=== PATIENT | female | born 1985 | race Caucasian/White ===

== ENCOUNTER 2017-08-17 01:56 | Emergency (ER) | payer OTHER ==
[~2017-08-17] VITALS: Ht 170.2 cm; Wt 49.9 kg
[2017-08-17] MEDS ORDERED: HYDROMORPHONE 1 MG/1 ML DISP.SYRIN IM ONE (02:30)
[2017-08-17] MEDS ORDERED: ONDANSETRON ODT 4 MG TAB.RAPDIS SL ONE (02:30)
[2017-08-17] MEDS ORDERED: MISCELLANEOUS MED XX ONE (02:30)
[2017-08-17] MEDS ORDERED: HYDROMORPHONE 2 MG/1 ML DISP.SYRIN ONE (02:44)
[2017-08-17] MEDS ORDERED: PENICILLIN G BENZATHINE 2.4 MMU/4 ML DISP.SYRIN IM ONE (02:45)
[2017-08-17] MEDS ORDERED: ONDANSETRON ODT 4 MG TAB.RAPDIS ONE (02:45)
--- NOTE | 2017-08-17 02:47 | NUR ---
Pt ambulated to room with steady gait. Pt c/o tooth pain from chipped tooth as well as sore throat. Pt seen by Dr. Coello. Pt medicated for pain, will monitor for effects of medication. Pt medicated with Bicillin 2.4 IM in the left dorsal glute ( ordered under misc. per Dr. Coello), will monitor for any adverse reactions. Pt resting in position of comfort for self.
--- NOTE | 2017-08-17 03:10 | NUR ---
No adverse reaction noted from ABT injection. Pt sts pain improved with medication. Pt stable for discharge per Dr. Coello. Pt given ACI. Pt verbalized understanding of dc instructions. Pt ambulated out of er with steady gait to wait for ride in [place]
[2017-08-17 04:14] VITALS: BP 115/85
== END 2017-08-17 03:10 | disposition home or self-care (01) ==
LOC: ER 02:11
DX: S09.93XA Unspecified injury of face, initial encounter (principal); K02.9 Dental caries, unspecified; J02.9 Acute pharyngitis, unspecified; F17.200 Nicotine dependence, unspecified, uncomplicated; X58.XXXA Exposure to other specified factors, initial encounter; Y93.89 Activity, other specified; Y92.9 Unspecified place or not applicable; Y99.9 Unspecified external cause status
CPT/HCPCS: A4663; J1170; Q0162

== ENCOUNTER 2018-03-29 03:36 | Emergency (ER) | payer SELFPAY ==
[~2018-03-29] VITALS: Ht 170.2 cm; Wt 54.4 kg
--- NOTE | 2018-03-29 04:00 | NUR ---
DR. ZUÑIGA AT BEDSIDE FOR MSE.
[2018-03-29] MEDS: HYDROCODONE/APAP 10-325 MG TABLET PO ONE (04:12)
[2018-03-29] MEDS ORDERED: CEPHALEXIN MONOHYDRATE 500 MG CAPSULE ONE (04:12)
[2018-03-29] MEDS ORDERED: HYDROCODONE/APAP 10-325 MG TABLET ONE (04:12)
[2018-03-29] MEDS: CEPHALEXIN MONOHYDRATE 500 MG CAPSULE PO ONE (04:12)
--- NOTE | 2018-03-29 04:15 | NUR ---
Patient discharged to home in stable conditon. Written and verbal after care instructions given. Patient verbalizes understanding of instructions. Pt left ER and walks in steady gait. Pt given prescription medication and understands not to drive home when on [place]. Pt states she has a ride outside to take her home. No distress noted.
[2018-03-29 04:19] VITALS: BP 131/92
== END 2018-03-29 04:21 | disposition home or self-care (01) ==
LOC: ER 03:38
DX: S02.5XXA Fracture of tooth (traumatic), initial encounter for closed fracture (principal); F17.210 Nicotine dependence, cigarettes, uncomplicated; X58.XXXA Exposure to other specified factors, initial encounter; Y93.89 Activity, other specified; Y92.89 Other specified places as the place of occurrence of the external cause; Y99.8 Other external cause status
CPT/HCPCS: A4663

== ENCOUNTER 2018-04-16 22:20 | Emergency (ER) | payer OTHER ==
[~2018-04-16] VITALS: Ht 170.2 cm; Wt 54.4 kg
--- NOTE | 2018-04-16 22:35 | NUR ---
DR FREDIS GALLO MD AT BEDSIDE FOR MSE.
--- NOTE | 2018-04-16 22:39 | NUR ---
PT C/O RT LOWER TOOTH PAIN FOR A FEW WEEKS. DENIES TRAUMA. NO ACTIVE BLEEDING NOTED AT SITE OR OBVIOUS DEFORMITY. PT REQUESTS SOMETHING FOR PAIN, BUT STATES SHE IS DRIVING SO DOES NOT WANT NARCOTICS. PT A&OX4
[2018-04-16] MEDS ORDERED: KETOROLAC TROMETHAMINE 30 MG INJ IM ONE (22:45)
[2018-04-16] MEDS ORDERED: HYDROCODONE/APAP 10-325 MG TABLET PO ONE (22:45)
[2018-04-16] MEDS ORDERED: PENICILLIN V POTASSIUM 500 MG TABLET PO ONE (22:45)
[2018-04-16] MEDS ORDERED: PENICILLIN V POTASSIUM 500 MG TABLET ONE (22:47)
[2018-04-16] MEDS ORDERED: KETOROLAC TROMETHAMINE 30 MG INJ ONE (22:47)
--- NOTE | 2018-04-16 22:55 | NUR ---
Patient discharged to home in stable conditon. Written and verbal after care instructions given. Patient verbalizes understanding of instructions. Pt accompanied by friend. Pt took all personal belongings. No distress noted.
[2018-04-16 23:00] VITALS: BP 122/84
== END 2018-04-16 23:28 | disposition home or self-care (01) ==
LOC: ER 22:21
DX: K02.9 Dental caries, unspecified (principal); F17.200 Nicotine dependence, unspecified, uncomplicated
CPT/HCPCS: 96372; 99283; A4663; J1885

== ENCOUNTER 2019-08-22 03:42 | Emergency (ER) | payer SELFPAY ==
[~2019-08-22] VITALS: Ht 170.2 cm; Wt 54.4 kg
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
--- NOTE | 2019-08-22 04:21 | NUR ---
ERMD at bedside for MSE
[2019-08-22] MEDS ORDERED: TDAP DIPH,PERTUSS,TET VAC/PF 0.5 ML DISP.SYRIN IM ONE ×2 (04:30→04:36)
[2019-08-22] MEDS ORDERED: HYDROCODONE/APAP 5-325MG TABLET PO ONE (04:30)
[2019-08-22] MEDS ORDERED: HYDROCODONE/APAP 5-325MG TABLET ONE (04:36)
[2019-08-22 05:13] LABS: *URINE HCG, QUAL NEGATIVE (NEGATIVE)
--- NOTE | 2019-08-22 05:13 | NUR ---
Patient discharged to home in stable conditon. Written and verbal after care instructions given. Patient verbalizes understanding of instructions. Patient ambulated with stable gait.
[2019-08-22 05:22] VITALS: BP 132/88
== END 2019-08-22 05:13 | disposition home or self-care (01) ==
LOC: ER 03:45
DX: T25.222A Burn of second degree of left foot, initial encounter (principal); L03.116 Cellulitis of left lower limb; F17.200 Nicotine dependence, unspecified, uncomplicated; X10.2XXA Contact with fats and cooking oils, initial encounter; Y93.89 Activity, other specified; Y92.89 Other specified places as the place of occurrence of the external cause; Y99.8 Other external cause status
CPT/HCPCS: 84703; 90715; A4663

== ENCOUNTER 2019-11-18 18:59 | Emergency (ER) | payer MEDICAID ==
[~2019-11-18] VITALS: Ht 167.6 cm; Wt 49.9 kg
--- NOTE | 2019-11-18 19:16 | NUR ---
PT AMBULATORY FR HOME C/O CHANGE IN URINE ODOR AND OCCASSIONAL DYSURIA FOR 2WKS AOX4, PT ABLE TO SPEAK CLEAR AND COMPLETE SENTENCES ABLE TO COMPLY WITH COMMANDS DENIES VAGINAL BLEEDING, DENIES FEVERS/CHILLS/NVD/JOINT PAIN DENIES RECENT TRAVELS DENIES POLYURIA MONITORED ACCORDINGLY
[2019-11-18 19:51] LABS: *BILIRUBIN,URIN NEGATIVE (NEGATIVE); *BLOOD, URINE NEGATIVE (NEGATIVE); *CLARITY,URINE SLIGHTLY CLOUDY (CLEAR); *COLOR,URINE YELLOW (YELLOW); *KETONES,URINE NEGATIVE (NEGATIVE); *UROBILINOGEN,URINE 0.2 E.U./dl (NORMAL); LEUKOCYTE ESTERASE ,URINE NEGATIVE (NEGATIVE); NITRITE, URINE POSITIVE (NEGATIVE); UGLUCOSE NEGATIVE (NEGATIVE)
[2019-11-18 19:54] LABS: *URINE HCG, QUAL NEGATIVE (NEGATIVE)
[2019-11-18 19:58] LABS: BACTERIA,URINE MANY /HPF (NONE SEEN); RBC,URINE 0-3 /HPF (0-3); SQUAMOUS EPITHELIAL CELL,UR FEW /HPF (NONE SEEN)
--- NOTE | 2019-11-18 20:06 | NUR ---
Patient discharged to home in stable conditon. Written and verbal after care instructions given. Patient verbalizes understanding of instructions. AMBULATORY W/ STABLE ALL BELONGINGS W/ PT
[2019-11-18 20:12] VITALS: BP 137/91
== END 2019-11-18 20:13 | disposition home or self-care (01) ==
LOC: ER 19:04
DX: N39.0 Urinary tract infection, site not specified (principal); F17.200 Nicotine dependence, unspecified, uncomplicated
CPT/HCPCS: 84703; 87077; 87086; A4663

== ENCOUNTER 2020-06-30 18:14 | Emergency (ER) | payer MEDICAID, OTHER ==
[~2020-06-30] VITALS: Ht 167.6 cm; Wt 49.9 kg
--- NOTE | 2020-06-30 18:30 | NUR ---
Dr Hugo at the bedside for MSE.
[2020-06-30 18:43] LABS: *BILIRUBIN,URIN NEGATIVE (NEGATIVE); *BLOOD, URINE 2+ (NEGATIVE); *CLARITY,URINE CLOUDY (CLEAR); *COLOR,URINE YELLOW (YELLOW); *KETONES,URINE TRACE (NEGATIVE); LEUKOCYTE ESTERASE ,URINE TRACE (NEGATIVE); NITRITE, URINE POSITIVE (NEGATIVE); UGLUCOSE NEGATIVE (NEGATIVE)
[2020-06-30] MEDS ORDERED: KETOROLAC TROMETHAMINE 15 MG INJ ONE (18:43)
[2020-06-30] MEDS ORDERED: ACETAMINOPHEN ES 500 MG TABLET ONE (18:43)
[2020-06-30] MEDS ORDERED: KETOROLAC TROMETHAMINE 15 MG INJ IVP ONE (18:45)
[2020-06-30] MEDS ORDERED: IV NORMAL SALINE 1000 ML BAG IV ONE ×2 (18:45→19:15)
[2020-06-30] MEDS ORDERED: ACETAMINOPHEN ES 500 MG TABLET PO ONE (18:45)
[2020-06-30 18:48] LABS: *URINE HCG, QUAL NEGATIVE (NEGATIVE)
[2020-06-30 18:55] LABS: BASOPHILS % (AUTO) 0.1 % (0.0-2.0); HEMATOCRIT 37.5 % (31.2-41.9); HEMOGLOBIN 12.4 g/dL (10.9-14.3); LYMPHOCYTES # (AUTO) 0.8 K/uL (20.0-40.0); LYMPHOCYTES % (AUTO) 4.1 % (20.5-51.5); MEAN CORPUSCULAR HGB CONC 33 g/dL (32.3-35.6); MEAN CORPUSCULAR VOLUME 91.1 fL (75.5-95.3); MONOCYTES # (AUTO) 2.4 K/uL (2.0-10.0); MONOCYTES % (AUTO) 12.7 % (0.0-11.0); NEUTROPHILS # (AUTO) 15.6 K/uL (1.8-8.9); NEUTROPHILS % (AUTO) 83.1 % (38.5-71.5); PLATELET COUNT (AUTO) 188 K/uL (179-408); RED BLOOD CELL COUNT(AUTO) 4.12 MIL/uL (3.63-4.92); WHITE BLOOD COUNT (AUTO) 18.7 K/uL (3.8-11.8)
[2020-06-30 18:58] LABS: POTASSIUM 3.4 mmol/L (3.5-5.1)
[2020-06-30 19:04] LABS: BACTERIA,URINE MANY /HPF (NONE SEEN); SQUAMOUS EPITHELIAL CELL,UR MANY /HPF (NONE SEEN)
[2020-06-30] MEDS ORDERED: CEFTRIAXONE 1 G in IV DEXTROSE 5% 50 ML IV ONE (19:15)
[2020-06-30] MEDS ORDERED: CEFTRIAXONE /D5W 50ML IVPB **ER PYXIS IV ONE (19:20)
--- NOTE | 2020-06-30 20:12 | NUR ---
IV removed. Catheter intact and site benign. Pressure and 4x4 gauze applied to site. No bleeding noted.
[2020-06-30 20:19] VITALS: BP 116/66
--- NOTE | 2020-06-30 20:19 | NUR ---
Patient discharged to home in stable condition. Written and verbal after care instructions given. Patient verbalizes understanding of instructions. Stressed follow up or return to ER for worsening s/s.
== END 2020-06-30 20:20 | disposition home or self-care (01) ==
LOC: ER 18:14
DX: N10 Acute pyelonephritis (principal); E87.1 Hypo-osmolality and hyponatremia; E87.6 Hypokalemia; Z87.440 Personal history of urinary (tract) infections
CPT/HCPCS: 36415; 80048; 81001; 84703; 85025; 87077; 87086; 87186; 96361; 96365; 96375; 99284; J0696; J1885; A4663; A9150; J7030

== ENCOUNTER 2022-12-03 18:26 | Emergency (ER) | payer OTHER | END 2022-12-03 20:46 | disposition left against medical advice (07) | LOC: ER 18:30 | DX: Z53.21 Procedure and treatment not carried out due to patient leaving prior to being seen by health care provider (principal) ==

== ENCOUNTER 2024-05-21 04:36 | Emergency (ER) | payer OTHER ==
[~2024-05-21] VITALS: Ht 167.6 cm; Wt 52.2 kg
[2024-05-21] MEDS ORDERED: ONDANSETRON HCL 4 MG TABLET ONE (05:15)
[2024-05-21] MEDS ORDERED: ACETAMINOPHEN 325 MG TABLET ONE (05:15)
[2024-05-21] MEDS: ACETAMINOPHEN 325 MG TABLET PO ONE (05:19)
[2024-05-21] MEDS: ONDANSETRON HCL 4 MG TABLET PO ONE (05:19)
[2024-05-21 05:22] LABS: BASOPHILS % (AUTO) 0.9 % (0.0-2.0); EOSINOPHILS # (AUTO) 0.2 K/uL (0.0-0.7); EOSINOPHILS % (AUTO) 3.1 % (0.0-7.0); HEMATOCRIT 36.7 % (31.2-41.9); HEMOGLOBIN 12.3 g/dL (10.9-14.3); LYMPHOCYTES # (AUTO) 1.8 K/uL (0.8-4.8); LYMPHOCYTES % (AUTO) 35.1 % (20.5-51.5); MEAN CORPUSCULAR HEMOGLOBIN 30.3 uug (24.7-32.8); MEAN CORPUSCULAR HGB CONC 34 g/dL (32.3-35.6); MONOCYTES # (AUTO) 0.7 K/uL (0.1-1.30); MONOCYTES % (AUTO) 12.9 % (0.0-11.0); NEUTROPHILS # (AUTO) 2.4 K/uL (1.8-8.9); PLATELET COUNT (AUTO) 237 K/uL (179-408); RED BLOOD CELL COUNT(AUTO) 4.08 MIL/uL (3.63-4.92); WHITE BLOOD COUNT (AUTO) 5.1 K/uL (3.8-11.8)
[2024-05-21 05:26] LABS: DIFFERENTIAL COMMENT 1
[2024-05-21 05:32] LABS: CALCIUM 8.6 mg/dL (8.5-10.1); CREATININE 0.8 mg/dL (0.6-1.3); POTASSIUM 3.4 mmol/L (3.5-5.1)
[2024-05-21 05:38] LABS: ALBUMIN 3.3 g/dL (3.4-5.0); BILIRUBIN,TOTAL 0.4 mg/dL (0.2-1.0); TOTAL PROTEIN, SERUM 6.8 g/dL (6.4-8.2)
[2024-05-21] MEDS ORDERED: ONDA4TAB5 PO (05:48)
[2024-05-21 06:15] LABS: *BILIRUBIN,URIN NEGATIVE (NEGATIVE); *BLOOD, URINE 3+ (NEGATIVE); *COLOR,URINE YELLOW (YELLOW); *KETONES,URINE NEGATIVE (NEGATIVE); *PROTEIN,URINE TRACE (NEGATIVE); *UROBILINOGEN,URINE 0.2 E.U./dl (NORMAL); LEUKOCYTE ESTERASE ,URINE NEGATIVE (NEGATIVE); NITRITE, URINE NEGATIVE (NEGATIVE); UGLUCOSE NEGATIVE (NEGATIVE)
[2024-05-21 06:19] VITALS: BP 130/83; TEMP 98.6; O2SAT 99
[2024-05-21 06:20] LABS: *CLARITY,URINE SLIGHTLY CLOUDY (CLEAR); *URINE HCG, QUAL NEGATIVE (NEGATIVE)
[2024-05-21 06:21] LABS: BACTERIA,URINE FEW /HPF (NONE SEEN); RBC,URINE TNTC /HPF (0-3); SQUAMOUS EPITHELIAL CELL,UR FEW /HPF (NONE SEEN); WBC,URINE 0-3 /HPF (0-3)
== END 2024-05-21 06:19 | disposition home or self-care (01) ==
LOC: ER 04:42
DX: K62.5 Hemorrhage of anus and rectum (principal); R10.2 Pelvic and perineal pain; Z98.890 Other specified postprocedural states
CPT/HCPCS: 36415; 83735; 84703; 85025; A4606; A4663; Q0162

== ENCOUNTER 2024-10-19 06:24 | Emergency (ER) | payer BC, OTHER ==
[~2024-10-19] VITALS: Ht 167.6 cm; Wt 54.4 kg
[~2024-10-19 06:24] MED LIST: ONDA4TAB5 PO
[2024-10-19] MEDS ORDERED: ACET-2605 PO (07:30)
[2024-10-19] MEDS ORDERED: SULFAMETH/TRIMETH 800/160 MG TABLET PO ONE (07:30)
[2024-10-19] MEDS ORDERED: SULF1TAB48 PO (07:30)
[2024-10-19] MEDS ORDERED: ACETAMINOPHEN 500 MG TABLET ONE (07:32)
[2024-10-19] MEDS ORDERED: SULFAMETH/TRIMETH 800/160 MG TABLET ONE (07:32)
[2024-10-19] MEDS ORDERED: CEFTRIAXONE 1 G VIAL ONE (07:35)
[2024-10-19] MEDS: ACETAMINOPHEN 500 MG TABLET PO ONE (07:36)
[2024-10-19] MEDS ORDERED: LIDOCAINE HCL 1% 20 ML VIAL ONE (07:38)
[2024-10-19] MEDS: CEFTRIAXONE 1 G VIAL IM ONE (07:48)
[2024-10-19 08:43] VITALS: BP 134/93; TEMP 97.2; O2SAT 100
== END 2024-10-19 08:44 | disposition home or self-care (01) ==
LOC: ER 06:35
DX: L03.115 Cellulitis of right lower limb (principal); F17.200 Nicotine dependence, unspecified, uncomplicated; Z79.899 Other long term (current) drug therapy; Z88.7 Allergy status to serum and vaccine
CPT/HCPCS: 99283; 96372; J0696; J3490; A4606; A4663; A9150